=== PATIENT | male | born 1990 | race African-American/Black ===

== ENCOUNTER 2018-01-26 00:01 | Emergency (ER) | payer BC, MEDICAID ==
[2018-01-26] MEDS ORDERED: KETOROLAC 30 MG/ML VIAL IM ONE (00:32)
[2018-01-26] MEDS ORDERED: ORPHENADRINE CITRATE 60MG/2ML VIAL IM ONE (00:32)
--- NOTE | 2018-01-26 00:45 | Emergency Department Record ---
History of Present Illness - General Chief complaint: Pain Stated complaint: TINGLING/SHARP PAIN LEFT SIDE Time Seen by Provider: 01/26/18 00:12 Source: Patient Mode of Arrival: Ambulatory Limitations: No limitations - History of Present Illness Initial comments: pt has been having back pain and numbness in his r leg since he had back surgery a yr ago. it has gotten worse the last few months and got worse tonight while he was at work with shooting pains. no bowel or bladder problems. Onset/Timin -: Month(s) Location: Left, Arm, Lower Leg History of Same: Yes Radiation: Proximal, Distal Severity scale (1-10): 8 Quality: Other Consistency: Intermittent, Getting worse Improves with: Movement, Other Worsens with: Walking, Weight bearing Associated Symptoms: Denies other symptoms - Related Data Home Medications Medication Instructions Recorded Confirmed Last Taken Acetaminophen with Codeine 1 tab PO BID 01/26/18 01/26/18 01/24/18 [Tylenol with Codeine #4] Baclofen [Lioresal] 10 mg PO BID 01/26/18 01/26/18 01/24/18 Hydrocodone/APAP 7.5/325Mg [Mon[place] 1 each PO BID 01/26/18 01/26/18 Unknown 7.5MG/325Mg] Previous Rx's Medication Instructions Recorded Cyclobenzaprine HCl [Flexeril] 10 mg PO QHS #10 tab 01/26/18 Hydrocodone/Acetaminophen [[place] 1 each PO Q6HR #7 tablet 01/26/18 5-325 Tablet] Ibuprofen [Motrin 600Mg] 600 mg PO Q6H #20 tablet 01/26/18 Allergies Allergy/AdvReac Type Severity Reaction Status Date / Time No Known Drug Allergies Allergy Verified 01/26/18 00:05 Travel Screening - Travel/Exposure Within Last 30 Days Have you traveled within the last 30 days?: No - Travel/Exposure Within Last Year Have you traveled outside the [place] in the last year?: No - Additonal Travel Details Have you been exposed to anyone with a communicable illness?: No - Travel Symptoms Symptom Screening: None Review of Systems Reviewed: No additional complaints except as noted below Constitutional: Reports: As per HPI. Denies: Chills, Fever, Malaise, Night sweats, Weakness, Weight change Eyes: Reports: As per HPI. Denies: Eye discharge, Eye pain, Photophobia, Vision change ENT: Reports: As per HPI. Denies: Congestion, Dental pain, Ear pain, Epistaxis , Hearing loss, Throat pain Respiratory: Reports: As per HPI. Denies: Cough, Dyspnea, Hemoptysis, Stridor, Wheezes Cardiovascular: Reports: As per HPI. Denies: Arrhythmia, Chest pain, Dyspnea on exertion, Edema, Murmurs, Orthopnea, Palpitations, Paroxysmal nocturnal dyspnea, Rheumatic Fever, Syncope Endocrine: Reports: As per HPI. Denies: Fatigue, Heat or cold intolerance, Polydipsia, Polyuria Gastrointestinal: Reports: As per HPI. Denies: Abdominal pain, Constipation, Diarrhea, Hematemesis, Hematochezia, Melena, Nausea, Vomiting Genitourinary: Reports: As per HPI. Denies: Dysuria, Frequency, Hematuria, Incontinence, Retention, Testicular pain, Testicular mass, Urgency Musculoskeletal: Reports: As per HPI. Denies: Arthralgia, Back pain, Gout, Joint swelling, Myalgia, Neck pain Skin: Reports: As per HPI. Denies: Bruising, Change in color, Change in hair/ nails, Lesions, Pruritus, Rash Neurological: Reports: As per HPI. Denies: Abnormal gait, Confusion, Headache, Numbness, Paresthesias, Seizure, Tingling, Tremors, Vertigo, Weakness Psychiatric: Reports: As per HPI. Denies: Anxiety, Auditory hallucinations, Depression, Homicidal thoughts, Suicidal thoughts, Visual hallucinations Hematological/Lymphatic: Reports: As per HPI. Denies: Anemia, Blood Clots, Easy bleeding, Easy bruising, Swollen glands Past Medical History - SOCIAL HISTORY Smoking Status: Current every day smoker Alcohol Use: None Drug Use: None - RESPIRATORY Hx Respiratory Disorders: Yes Hx Asthma: Yes - CARDIOVASCULAR Hx Cardio Disorders: No - NEURO Hx Neuro Disorders: No - GI Hx GI Disorders: No - Hx Genitourinary Disorders: No - ENDOCRINE Hx Endocrine Disorders: No - MUSCULOSKELETAL Hx Musculoskeletal Disorders: Yes - PSYCH Hx Psych Problems: No - HEMATOLOGY/ONCOLOGY Hx Hematology/Oncology Disorders: No Family Medical History Any Significant Family History?: No Physical Exam - General General Appearance: Alert, Oriented x3, Cooperative, Mild distress - Head Head exam: Normal inspection - Eye Eye exam: Normal appearance, PERRL, EOMI Pupils: Normal accommodation - ENT ENT exam: Normal exam, Mucous membranes moist, Normal external ear exam, Normal orophraynx, TM's normal bilaterally Ear exam: Normal external inspection. negative: External canal tenderness Nasal Exam: Normal inspection. negative: Discharge, Sinus tenderness Mouth exam: Normal external inspection, Tongue normal Teeth exam: Normal inspection. negative: Dental caries Throat exam: Normal inspection. negative: Tonsillar erythema, Tonsillar exudate - Neck Neck exam: Normal inspection, Full ROM. negative: Tenderness - Respiratory Respiratory exam: Normal lung sounds bilaterally. negative: Respiratory distress - Cardiovascular Cardiovascular Exam: Regular rate, Normal rhythm, Normal heart sounds - GI/Abdominal GI/Abdominal exam: Soft, Normal bowel sounds. negative: Tenderness - Rectal Rectal exam: Deferred - exam: Deferred - Extremities Extremities exam: Normal inspection, Full ROM, Normal capillary refill. negative: Tenderness - Back Back exam: Reports: Normal inspection, Full ROM, Tenderness. Denies: Muscle spasm, Rash noted - Neurological Neurological exam: Alert, CN II-XII intact, Normal gait, Oriented X3 - Psychiatric Psychiatric exam: Normal affect, Normal mood - Skin Skin exam: Dry, Intact, Normal color, Warm Course Vital Signs 01/26/18 00:05 Temperature 99.0 F Pulse Rate [ 79 Pulse Ox Probe] Respiratory 17 Rate Blood Pressure 131/84 [Left Arm] Pulse Ox 99 Disposition Disposition: Discharge Clinical Impression: Radiculopathy Qualifiers: Spinal region: lumbosacral Qualified Code(s): M54.17 - Radiculopathy, lumbosacral region Disposition: Home, Self-Care Condition: (1) Good Instructions: Lumbar Radiculopathy (ED) Additional Instructions: follow up with back surgeon this week. return sooner if worse. Prescriptions: Cyclobenzaprine HCl [Flexeril] 10 mg PO QHS #10 tab Hydrocodone/Acetaminophen [Monroe 5-325 Tablet] 1 each PO Q6HR #7 tablet Ibuprofen [Motrin 600Mg] 600 mg PO Q6H #20 tablet Forms: Patient Portal Access Quality - Quality Measures Quality Measures: N/A - Blood Pressure Screening Does Patient Have Any of the Following: No Blood Pressure Classification: Pre-Hypertensive BP Reading Systolic Measurement: 131 Diastolic Measurement: 84 Screening for High Blood Pressure: < Pre-Hypertensive BP, F/U Documented > [ [id number]] Pre-Hypertensive Follow-up Interventions: Follow-up with rescreen every year.
--- NOTE | 2018-01-28 10:30 | RADIOLOGY REPORT ---
EXAM: LUMBAR SPINE, TWO VIEWS HISTORY: LEFT SIDED TINGLING AND SHARP PAIN FOR TWO MONTH INCREASING OVER THE LAST WEEK. PRIOR SURGERY AT THE L5-S1 LEVEL. TECHNIQUE: AP and lateral views of the lumbar spine are obtained. Comparison: None. FINDINGS: There is normal bone mineralization. There are five non-rib bearing lumbar type vertebra. The vertebral bodies are normal in alignment and height. Left hemilaminectomy changes are noted at L5. No acute fracture is seen. No lytic or blastic bone lesion identified. Mild disk space narrowing is suspected at the L5-S1 level. The intervertebral disks and facet joints are otherwise maintained. The sacroiliac joints and hip joints are maintained. IMPRESSION: 1. NO EVIDENCE OF ACUTE OSSEOUS OR LIGAMENTOUS INJURY. 2. LEFT HEMILAMINECTOMY CHANGES AT THE L5 LEVEL. MINOR DISK SPACE NARROWING AT THE L5-S1 LEVEL. JOB NUMBER: [id number] MTDD
== END 2018-01-26 01:43 | disposition home or self-care (01) ==
LOC: ER 00:01
DX: M54.17 Radiculopathy, lumbosacral region (principal); F17.210 Nicotine dependence, cigarettes, uncomplicated
CPT/HCPCS: 99283; 96372; 99284; 72100; J1885; J2360